=== PATIENT | male | born 1935 | race Caucasian/White ===

== ENCOUNTER → 2016-04-21 | Outpatient (REF) | payer MEDICARE ==
[2016-04-21 16:02] LABS: ALBUMIN 3.4 GM/DL (3.2-5.2); ALBUMIN/GLOBULIN RATIO 0.85 (1.00-1.93); BILIRUBIN,TOTAL 0.3 MG/DL (0.2-1.0); CALCIUM LEVEL 8.4 MG/DL (8.8-10.2); CREATININE FOR GFR 2.7 MG/DL (0.70-1.30); GLOMERULAR FILTRATION RATE 24.3 (>35); TOTAL PROTEIN 7.4 GM/DL (6.4-8.2)
[2016-04-21 16:03] LABS: POTASSIUM SERUM 5.2 MEQ/L (3.5-5.1)
== END ==
LOC: M SFHCLACO 07:55
PROVIDERS: ATTEND Physician Assistant
DX: I12.9 Hypertensive chronic kidney disease with stage 1 through stage 4 chronic kidney disease, or unspecified chronic kidney disease (principal); N18.4 Chronic kidney disease, stage 4 (severe)

== ENCOUNTER → 2016-12-01 | Outpatient (REF) | payer MEDICARE ==
[2016-12-01 15:11] LABS: ALBUMIN 3.4 GM/DL (3.2-5.2); ALBUMIN/GLOBULIN RATIO 0.76 (1.00-1.93); BILIRUBIN,TOTAL 0.5 MG/DL (0.2-1.0); CREATININE FOR GFR 2.75 MG/DL (0.70-1.30); GLOMERULAR FILTRATION RATE 23.8 (>35); POTASSIUM SERUM 4.2 MEQ/L (3.5-5.1); TOTAL PROTEIN 7.9 GM/DL (6.4-8.2)
== END ==
LOC: M SFHCLACO 07:52
PROVIDERS: ATTEND Physician Assistant
DX: I12.9 Hypertensive chronic kidney disease with stage 1 through stage 4 chronic kidney disease, or unspecified chronic kidney disease (principal); J44.9 Chronic obstructive pulmonary disease, unspecified; N18.4 Chronic kidney disease, stage 4 (severe); Z79.899 Other long term (current) drug therapy

== ENCOUNTER → 2017-04-27 | Outpatient (REF) | payer MEDICARE ==
[2017-04-27 14:59] LABS: ANION GAP 8 MEQ/L (8-16); BLOOD UREA NITROGEN 31 MG/DL (7-18); CALCIUM LEVEL 8.6 MG/DL (8.8-10.2); CARBON DIOXIDE LEVEL 26 MEQ/L (21-32); CHLORIDE LEVEL 106 MEQ/L (98-107); CREATININE FOR GFR 2.32 MG/DL (0.70-1.30); GLOMERULAR FILTRATION RATE 28.9 (>35); GLUCOSE, FASTING 86 MG/DL (70-100); POTASSIUM SERUM 4.4 MEQ/L (3.5-5.1); SODIUM LEVEL 140 MEQ/L (136-145)
== END ==
LOC: M SFHCLACO 08:42
DX: I12.9 Hypertensive chronic kidney disease with stage 1 through stage 4 chronic kidney disease, or unspecified chronic kidney disease (principal); N18.4 Chronic kidney disease, stage 4 (severe)
CPT/HCPCS: 80048

== ENCOUNTER → 2017-07-27 | Outpatient (REF) | payer MEDICARE ==
[2017-07-27 15:02] LABS: ANION GAP 7 MEQ/L (8-16); BLOOD UREA NITROGEN 53 MG/DL (7-18); CALCIUM LEVEL 8.6 MG/DL (8.8-10.2); CARBON DIOXIDE LEVEL 23 MEQ/L (21-32); CHLORIDE LEVEL 109 MEQ/L (98-107); CREATININE FOR GFR 3.09 MG/DL (0.70-1.30); GLOMERULAR FILTRATION RATE 20.7 (>35); GLUCOSE, FASTING 72 MG/DL (70-100); POTASSIUM SERUM 5.1 MEQ/L (3.5-5.1); SODIUM LEVEL 139 MEQ/L (136-145)
== END ==
LOC: M SFHCLACO 07:56
DX: N18.4 Chronic kidney disease, stage 4 (severe) (principal); I12.9 Hypertensive chronic kidney disease with stage 1 through stage 4 chronic kidney disease, or unspecified chronic kidney disease
CPT/HCPCS: 80048

== ENCOUNTER → 2017-11-02 | Outpatient (REF) | payer MEDICARE ==
[2017-11-02 15:00] LABS: ALBUMIN 3.2 GM/DL (3.2-5.2); ALKALINE PHOSPHATASE 73 U/L (45-117); ALT/SGPT 24 U/L (12-78); ANION GAP 7 MEQ/L (8-16); AST/SGOT 14 U/L (7-37); BILIRUBIN,TOTAL 0.3 MG/DL (0.2-1.0); BLOOD UREA NITROGEN 51 MG/DL (7-18); CALCIUM LEVEL 8.3 MG/DL (8.8-10.2); CARBON DIOXIDE LEVEL 25 MEQ/L (21-32); CHLORIDE LEVEL 111 MEQ/L (98-107); CREATININE FOR GFR 3.29 MG/DL (0.70-1.30); GLOMERULAR FILTRATION RATE 19.3 (>35); GLUCOSE, FASTING 82 MG/DL (70-100); POTASSIUM SERUM 4.9 MEQ/L (3.5-5.1); SODIUM LEVEL 143 MEQ/L (136-145); TOTAL PROTEIN 7.8 GM/DL (6.4-8.2)
== END ==
LOC: M SFHCLACO 07:51
DX: I12.9 Hypertensive chronic kidney disease with stage 1 through stage 4 chronic kidney disease, or unspecified chronic kidney disease (principal); N18.4 Chronic kidney disease, stage 4 (severe); R60.9 Edema, unspecified; E83.51 Hypocalcemia
CPT/HCPCS: 80053

== ENCOUNTER → 2018-07-26 | Outpatient (REF) | payer MEDICARE ==
[2018-07-26 12:49] LABS: INR 1.27; PARTIAL THROMBOPLASTIN TIME 37.8 SECONDS (25.4-37.6); PROTHROMBIN TIME 16.1 SECONDS (12.1-14.4)
[2018-07-26 13:14] LABS: CALCIUM LEVEL 8.1 MG/DL (8.8-10.2); GLOMERULAR FILTRATION RATE 11.9 (>35); POTASSIUM SERUM 4.8 MEQ/L (3.5-5.1)
== END ==
LOC: M SFHCADAM 10:58
PROVIDERS: ATTEND Physician Assistant
DX: D69.9 Hemorrhagic condition, unspecified (principal)

== ENCOUNTER → 2018-10-25 | Outpatient (REF) | payer MEDICARE ==
[2018-10-25 19:28] LABS: CALCIUM LEVEL 8.6 MG/DL (8.8-10.2); CREATININE FOR GFR 3.99 MG/DL (0.70-1.30); GLOMERULAR FILTRATION RATE 15.4 (>35)
== END ==
LOC: M SFHCADAM 17:40
PROVIDERS: ATTEND Physician Assistant
DX: N18.4 Chronic kidney disease, stage 4 (severe) (principal)

== ENCOUNTER → 2019-02-02 | Outpatient (REF) | payer MEDICARE ==
[2019-02-02 19:14] LABS: CALCIUM LEVEL 8.5 MG/DL (8.8-10.2); CREATININE FOR GFR 4.43 MG/DL (0.70-1.30); GLOMERULAR FILTRATION RATE 13.6 (>35); POTASSIUM SERUM 5.8 MEQ/L (3.5-5.1)
== END ==
LOC: M SFHCADAM 16:38
PROVIDERS: ATTEND Physician Assistant
DX: N18.4 Chronic kidney disease, stage 4 (severe) (principal)

== ENCOUNTER → 2019-04-05 | Outpatient (REF) | payer MEDICARE ==
[2019-04-05 19:24] LABS: CALCIUM LEVEL 8.9 MG/DL (8.8-10.2); CREATININE FOR GFR 3.9 MG/DL (0.70-1.30); GLOMERULAR FILTRATION RATE 15.8 (>35); POTASSIUM SERUM 4.5 MEQ/L (3.5-5.1)
== END ==
LOC: M LABDRWAD 18:59
PROVIDERS: ATTEND Physician Assistant
DX: N18.4 Chronic kidney disease, stage 4 (severe) (principal)

== ENCOUNTER → 2020-01-08 | Outpatient (REF) | payer MEDICARE ==
[2020-01-08 13:28] LABS: CALCIUM LEVEL 8.7 MG/DL (8.8-10.2); CREATININE FOR GFR 4.92 MG/DL (0.70-1.30); GLOMERULAR FILTRATION RATE 12.1 (>35); POTASSIUM SERUM 5.8 MEQ/L (3.5-5.1)
== END ==
LOC: M SFHCADAM 09:49
PROVIDERS: ATTEND Physician Assistant
DX: N18.6 End stage renal disease (principal)

== ENCOUNTER → 2020-04-03 | Outpatient (REF) | payer MEDICARE ==
[2020-04-03 18:28] LABS: CALCIUM LEVEL 8.5 MG/DL (8.8-10.2); CREATININE FOR GFR 5.67 MG/DL (0.70-1.30); GLOMERULAR FILTRATION RATE 10.2 (>35); POTASSIUM SERUM 4.7 MEQ/L (3.5-5.1)
== END ==
LOC: M SFHCLACO 15:07
PROVIDERS: ATTEND Physician Assistant
DX: N18.6 End stage renal disease (principal)